=== PATIENT | male | born 1990 | race Caucasian/White ===

== ENCOUNTER 2023-04-30 21:30 | Emergency (ER) | payer SELFPAY ==
[~2023-04-30] VITALS: Ht 188 cm; Wt 95.3 kg
[2023-04-30 21:35] VITALS: BP_SYST 145; PULSE 82; RESP 18; TEMP 97.2; O2SAT 96
[2023-04-30] MEDS ORDERED: ACETAMINOPHEN 325 MG TABLET PO ONE (22:15)
[2023-04-30] MEDS ORDERED: DIPHTH,PERTUSS(ACELL),TET VAC 0.5 ML VIAL (Tdap) I.M. ONE (22:15)
[2023-04-30] MEDS ORDERED: LIDOCAINE 1%, 20 ML MDV 20 ML ONE (22:51)
[2023-04-30] MEDS ORDERED: CEPH-548 PO (23:18)
[2023-04-30 23:39] VITALS: BP_SYST 141; PULSE 80; RESP 20; TEMP 98; O2SAT 93
== END 2023-04-30 23:39 | disposition home or self-care (01) ==
LOC: SED 21:30
DX: S81.811A Laceration without foreign body, right lower leg, initial encounter (principal); Z79.899 Other long term (current) drug therapy; W22.8XXA Striking against or struck by other objects, initial encounter; Y93.89 Activity, other specified; Y92.89 Other specified places as the place of occurrence of the external cause; Y99.8 Other external cause status
CPT/HCPCS: 99283; 73590; 90715; 90471; 12001; J2001